=== PATIENT | female | born 1950 | race Caucasian/White ===

== ENCOUNTER 2016-12-28 10:42 | Outpatient (CLI) | payer OTHER, MEDICAID ==
[~2016-12-28 10:42] MED LIST: ALPR1TAB2 PO; KLO2 PO; NORCO5 PO; PARO40TA45 PO
== END 2016-12-28 18:28 | disposition home or self-care (01) ==
LOC: SMA 10:42
PROVIDERS: ATTEND Family Medicine
DX: Z12.31 Encounter for screening mammogram for malignant neoplasm of breast (principal)
CPT/HCPCS: 77067; G0202

== ENCOUNTER 2018-08-06 15:49 | Inpatient (IN) | payer OTHER, MEDICAID ==
[~2018-08-06] VITALS: Ht 167.6 cm; Wt 64.0 kg
[~2018-08-06 15:49] MED LIST changes: +PARO40TA PO; -PARO40TA45 PO
--- NOTE | 2018-08-06 15:56 | NUR ---
Placed in room 2. Placed on athletic monitor, blood pressure machine and pulse oximeter. To gown for exam. Side rails up. Report given to Jeremiah WALLIS.
[2018-08-06 15:57] VITALS: BP_SYST 160
--- NOTE | 2018-08-06 16:00 | NUR ---
Pt presents to ER c/o vomiting x 5 today along with general weakness and body aches 8/10 on pain scale. Pt denies chest pain or sob. Pt AOX4, ambulatory, speaking full sentences, respirations even and unlabored.
--- NOTE | 2018-08-06 16:04 | NUR ---
ER at bedside examining patient.
[2018-08-06] MEDS ORDERED: NACL 0.9% 1,000 ML IV ONE (16:07)
--- NOTE | 2018-08-06 16:12 | NUR ---
Radiology at bedside.
[2018-08-06] MEDS ORDERED: KETOROLAC TROMETHAMINE 30 MG VIAL IVP ONE (16:15)
[2018-08-06 16:52] LABS: BASOPHILS % (AUTO) 0.3 % (0.0-2.0); EOSINOPHILS % (AUTO) 0.1 % (0.0-4.0); HEMOGLOBIN 16.6 g/dL (12.0-16.0); LYMPHOCYTES # (AUTO) 1.2 K/uL (1.0-5.5); LYMPHOCYTES % (AUTO) 7.8 % (20.5-51.5); MEAN CORPUSCULAR HEMOGLOBIN 33 pg (27-31); MEAN CORPUSCULAR HGB CONC 34 % (32-36); MEAN CORPUSCULAR VOLUME 96 fL (79.0-98.0); MONOCYTES # (AUTO) 0.9 K/uL (0.0-1.0); NEUTROPHILS # (AUTO) 12.9 K/uL (1.8-7.7); NEUTROPHILS % (AUTO) 85.8 % (40.0-70.0); PLATELET COUNT (AUTO) 513 K/uL (130-430); RED CELL DISTRIBUTION WIDTH 13.1 % (9.0-15.0)
--- NOTE | 2018-08-06 16:55 | NUR ---
Pt vomited into emesis bag. Dr. Marcelino notified.
[2018-08-06 16:56] LABS: CALCIUM 9.5 mg/dL (8.4-11.0); CREATININE 0.78 mg/dL (0.55-1.30); POTASSIUM 3.6 mmol/L (3.5-5.1)
[2018-08-06] MEDS ORDERED: ONDANSETRON HCL 4 MG/2 ML VIAL IVP ONE (17:00)
[2018-08-06 17:02] LABS: TOTAL BILIRUBIN 0.5 mg/dL (0.0-1.0)
[2018-08-06 17:22] LABS: BILIRUBIN,URINE NEGATIVE (NEGATIVE); BLOOD, URINE 1+ (NEGATIVE); CLARITY/URINE SL HAZY (CLEAR); COLOR,URINE YELLOW (YELLOW); GLUCOSE,URINE NEGATIVE (NEGATIVE); KETONES,URINE NEGATIVE (NEGATIVE); LEUKOCYTE ESTERASE ,URINE NEGATIVE (NEGATIVE); NITRITE, URINE NEGATIVE (NEGATIVE); PH,URINE 7.5 (5.0-8.0); PROTEIN URINE NEGATIVE (NEGATIVE); UROBILINOGEN,URINE 0.2 (0.2-1.0)
--- NOTE | 2018-08-06 18:00 | NUR ---
Patient transported to radiology via wheelchair, accompanied by rad staff.
--- NOTE | 2018-08-06 18:27 | NUR ---
# 20 gauge angiocath placed to L HAND. Use of asceptic technique. Opsite placed over site. Blood return noted. Flushed with 10 cc of normal saline. No evidence of infiltration noted. Patient tolerated well.
[2018-08-06 18:46] LABS: WBC,URINE 0-3 /HPF (0-3)
[2018-08-06 18:47] LABS: BACTERIA,URINE FEW /HPF (None Seen); COARSE GRANULAR CASTS,URINE 0-10 /LPF (None Seen); MUCUS,URINE 1+ /LPF (None Seen); URINE AMORPHOUS URATE 1+ /HPF (None Seen)
[2018-08-06] MEDS ORDERED: CARI3CAP PO (19:26)
[2018-08-06] MEDS ORDERED: TOPI50TA PO (19:26)
[2018-08-06] MEDS ORDERED: QUET50TA PO (19:26)
[2018-08-06] MEDS ORDERED: PARO-63 PO (19:26)
--- NOTE | 2018-08-06 19:27 | NUR ---
Medication reconciliation completed with information provided by patient. Any prior medication reconciliation on file was reviewed and corrected.
--- NOTE | 2018-08-06 19:38 | NUR ---
ADMISSION NOTE Received patient from ER via gurney. Patient admitted with diagnosis of vomiting and body aches. Patient is awake, alert, oriented X 4. Patient oriented to hospital room, call light, toileting, pain management and safety-teach back done. Patient informed that Juan Antonio will be nurse and that their room number is 124A. Personal belongings checked and Belongings List documented. Call light within reach.
--- NOTE | 2018-08-06 19:40 | NUR ---
Patient will be admitted to care of Dr. Luna. Admitted to tele unit. Will go to room 124a. Belongings list completed. Summary report printed. Report will be given at bedside. Transfer to tele via ACLS protocol. Licensed nurse present. IV present no signs or symptoms of infiltration.
--- NOTE | 2018-08-06 19:50 | NUR ---
ULTRASOUND Patient taken by radiation tech at this time for ultrasound of pelvis and abdomen, escorted by manager intensive care unit. Patient is AOx4, complains of general pain,5/10, stating pain is everywhere. Breathing is even and unlabored, no SOB. No active bleeding noted.
[2018-08-06 20:40] VITALS: BP_SYST 151
[2018-08-06] MEDS ORDERED: KETOROLAC TROMETHAMINE 15 MG VIAL IVP PRN (21:00)
[2018-08-06] MEDS ORDERED: ACETAMINOPHEN 650 MG SUPP.RECT RC PRN (21:15)
[2018-08-06] MEDS ORDERED: KCL 20 mEq in 100 mL (PREMIX) 100 ML IV ONE (21:40)
[2018-08-06] MEDS: POTASSIUM CHLORIDE 10 MEQ in NACL 0.9% 1,000 ML IV SCH (21:45)
--- NOTE | 2018-08-06 21:50 | NUR ---
IV FLUID MIXED AND HUNG/PAIN IVF mixed by admit nurse, Roque, 10 meq KCl with NaCl running at 125 ml/hr per orders. Patient complained of 5/10 abdominal pain and general weakness. Toradol 15 mg IVP administered per PRN orders. Will continue to monitor and reassess patient.
[2018-08-06] MEDS: LORazepam 2 MG/ML VIAL IVP PRN (21:56)
[2018-08-06] MEDS: ONDANSETRON HCL 4 MG/2 ML VIAL IVP PRN (21:56)
[2018-08-06] MEDS ORDERED: PANTOPRAZOLE SODIUM 40 MG/VIAL (PROTONIX) IVP SCH (22:00)
--- NOTE | 2018-08-06 23:30 | NUR ---
ROUNDS Patient in bed sleeping at this time. No s/s of acute distress. Breathing is even and unlabored. IVF infusing well. Call light with patient. Bed alarm on. Will continue to monitor.
[2018-08-07] VITALS: BP_SYST 154
[2018-08-07 00:41] LABS: HCG,QUAL RESULT NEGATIVE (NEGATIVE)
--- NOTE | 2018-08-07 01:30 | NUR ---
ROUNDS/ASSISTED TO BATHROOM Patient requested assistance to the bathroom to void. Patient's gait steady, patient tolerated activity well. No s/s of acute distress noted. No SOB. Breathing even and unlabored. IVF infusing well, IV site shows no signs of infection or infiltration, patent. Call light with patient. Bed alarm on. Will continue to monitor.
--- NOTE | 2018-08-07 03:08 | NUR ---
CONSULTATION PAGED/CALLED Reason for Consultation: INCREASED LIPASE Person Who was Notified: OKSANA Consulting Physician: SENG International Operations Manager Specialty: GI Ordering Physician: LINSEY
--- NOTE | 2018-08-07 03:30 | NUR ---
ROUNDS Patient sleeping in bed. No signs of discomfort noted. Chest rise and fall even bilaterally. IVF infusing well. Call light with patient. Bed alarm on. Will continue to monitor.
[2018-08-07] MEDS: ONDANSETRON HCL 4 MG/2 ML VIAL IVP PRN (04:14)
[2018-08-07] MEDS: POTASSIUM CHLORIDE 10 MEQ in NACL 0.9% 1,000 ML IV SCH ×4 (05:14→21:04)
--- NOTE | 2018-08-07 05:30 | NUR ---
ROUNDS Patient sleeping at this time. NO acute distress noted. Breathing even and unlabored. Call light with patient. Will continue to monitor.
--- NOTE | 2018-08-07 07:22 | NUR ---
CLOSING NOTES Patient in bed resting at this time, watching TV. No s/s of acute distress noted. Patient denies any pain. Breathing is even and unlabored. IVF infusing well. IV site is patent, no signs of infiltration or infection. All of patient's needs met throughout shift. Fall and safety precautions maintained throughout shift. Will continue to monitor until patient care is endorsed to oncoming day shift nurse.
--- NOTE | 2018-08-07 07:30 | NUR ---
AM ROUNDS RECEIVED PT UP IN BED. AWAKE, ALERT, ORIENTED X4. BREATHING IS EVEN AND UNLABORED ON RA. FULL ASSESSMENT COMPLETED. VSS. PAIN TO ABDOMEN IS MANAGED AT THIS TIME. RD OF CALL LIGHT NOTED. ENCOURAGED PT TO CALL ME WITH ANY NEEDS.
[2018-08-07 07:56] LABS: BASOPHILS % (AUTO) 0.1 % (0.0-2.0); EOSINOPHILS % (AUTO) 0.1 % (0.0-4.0); LYMPHOCYTES # (AUTO) 1.4 K/uL (1.0-5.5); LYMPHOCYTES % (AUTO) 11.1 % (20.5-51.5); MEAN CORPUSCULAR HEMOGLOBIN 33 pg (27-31); MEAN CORPUSCULAR HGB CONC 34 % (32-36); MEAN CORPUSCULAR VOLUME 97 fL (79.0-98.0); MONOCYTES % (AUTO) 8.4 % (1.7-9.3); NEUTROPHILS # (AUTO) 10.1 K/uL (1.8-7.7); NEUTROPHILS % (AUTO) 80.3 % (40.0-70.0); PLATELET COUNT (AUTO) 412 K/uL (130-430); RED BLOOD CELL COUNT(AUTO) 4.84 MIL/uL (4.2-6.2); RED CELL DISTRIBUTION WIDTH 13.2 % (9.0-15.0); WHITE BLOOD COUNT (AUTO) 12.5 K/uL (4.8-10.8)
[2018-08-07 08:00] VITALS: BP_SYST 110
[2018-08-07 08:24] LABS: ALBUMIN 3.5 g/dL (3.4-4.8); CALCIUM 9.3 mg/dL (8.4-11.0); CREATININE 0.9 mg/dL (0.55-1.30); POTASSIUM 3.9 mmol/L (3.5-5.1); THYROID STIMULATING HORMONE 0.72 uIu/mL (0.34-4.82); TOTAL BILIRUBIN 0.5 mg/dL (0.0-1.0)
[2018-08-07 08:54] LABS: BILIRUBIN,DIRECT 0.1 mg/dL (0.0-0.3)
[2018-08-07] MEDS: PANTOPRAZOLE SODIUM 40 MG/VIAL (PROTONIX) IVP SCH (09:20)
--- NOTE | 2018-08-07 12:30 | NUR ---
RN ROUNDS ASSISTED PT TO BATHROOM. RETURNED TO BED. IVF RESUMED
[2018-08-07 12:45] VITALS: BP_SYST 130
[2018-08-07] MEDS: LORazepam 2 MG/ML VIAL IVP PRN (13:29)
--- NOTE | 2018-08-07 14:40 | NUR ---
RN ROUNDS PT RESTING IN BED. EYES CLOSED CHEST RISING AND FALLING. NO NONVERBAL INDICATORS OF PAIN NOTED.
[2018-08-07 16:18] VITALS: BP_SYST 99
--- NOTE | 2018-08-07 17:19 | NUR ---
IV RE-INSERTION: Complaining of pain to IV site. Restarted on LEFT WRIST. Successful after 1 attempts. Resumed current IVF and regulated @ 80 per hour. Will observe for any signs of infiltration.
--- NOTE | 2018-08-07 18:31 | NUR ---
CLOSING NOTE PT RESTING IN BED. ALL NEEDS MET. HOURLY ROUNDS OBSERVED THROUGHOUT SHIFT. WILL ENDORSE REPORT TO NOC SHIFT NURSE
--- NOTE | 2018-08-07 19:05 | NUR ---
OPENING NOTES Late entry due to patient care. Bedside report received from day shift nurse. Patient received lying in bed, AOx4, talking to her female friend present at bedside. Patient denies any pain, dizziness, or nausea at this time. No s/s of acute distress noted. Breathing is even and unlabored. Patient was made aware of EGD procedure for tomorrow and that she will be NPO at midnight, patient verbalized understanding. IVF infusing well. IV site shows no signs of infection or infiltration. Call light with patient, instructed to call for any assistance, patient verbalized understanding. Bed alarm on. Bed is locked and at lowest position. Will continue to monitor.
[2018-08-07 20:00] VITALS: BP_SYST 137
[2018-08-07] MEDS ORDERED: QUEtiapine FUMARATE 25 MG TABLET PO SCH (21:00)
[2018-08-07] MEDS ORDERED: CARIPRAZINE HYDROCHLORIDE 3 MG PO SCH (21:00)
--- NOTE | 2018-08-07 21:00 | NUR ---
NEW IV BAG HUNG/MEDPASS New IV bag hung at this time. IVF infusing well, IV site patent, no signs of infection or infiltration. Scheduled medication administered at this time. Patient shows no signs of discomfort. Patient denies any pain or nausea. Call light with patient. Bed alarm on. Will continue to monitor.
--- NOTE | 2018-08-07 23:00 | NUR ---
ROUNDS Patient in bed sleeping at this time. No signs of discomfort noted. Chest rise and fall even bilaterally. IVF infusing well. Call light with patient. Bed alarm on. Will continue to monitor.
--- NOTE | 2018-08-08 00:15 | NUR ---
ASSIST TO BATHROOM Patient requested for assistance to the bathroom to void. Patient tolerated activity well. No s/s of acute distress. No SOB. Patient walked back to bed. Call light within reach. IVF infusing well. Bed alarm on. Will continue to monitor.
[2018-08-08 01:07] VITALS: BP_SYST 126
--- NOTE | 2018-08-08 02:00 | NUR ---
ROUNDS Patient sleeping in bed comfortably. No signs of discomfort noted. Chest rise and fall even bilaterally. IVF infusing well. Call light within reach. Bed alarm remains on. Will continue to monitor.
--- NOTE | 2018-08-08 04:00 | NUR ---
ROUNDS Patient sleeping comfortably at this time. No s/s of acute distress noted. Chest rise and fall even bilaterally. IVF infusing well. Call light with patient. Bed alarm on. Will continue to monitor.
--- NOTE | 2018-08-08 06:27 | NUR ---
CLOSING NOTES Patient in bed resting, watching TV. No s/s of acute distress, patient denies pain or nausea. Breathing even and unlabored. IVF infusing well, IV site shows no signs of infection or infiltration. HOB raised. NPO cone present at bedside table. Patient is aware of NPO status and has verbalized understanding. EGD scheduled for this morning. All of patient's needs met throughout shift. Fall and safety precautions maintained throughout shift. Will continue to monitor until patient care is endorsed to oncoming day shift nurse.
[2018-08-08 06:52] LABS: CALCIUM 8.9 mg/dL (8.4-11.0); CREATININE 0.96 mg/dL (0.55-1.30); POTASSIUM 3.3 mmol/L (3.5-5.1)
[2018-08-08 07:07] LABS: ALBUMIN 3.3 g/dL (3.4-4.8); TOTAL BILIRUBIN 0.6 mg/dL (0.0-1.0)
[2018-08-08] MEDS ORDERED: SIMETHICONE 40 MG/0.6 ML ML ONE ×2 (07:47→10:10)
[2018-08-08] MEDS ORDERED: POTASSIUM CHLORIDE 30 MEQ in NS 250 ML IV ONE (08:00)
[2018-08-08 08:25] VITALS: BP_SYST 130
--- NOTE | 2018-08-08 08:35 | NUR ---
opening notes, received pt in bed, pt is aao x4, denies pain. no sob, no distress. pt is afebrile. left wrist iv access intact and patent. saline locked. no s/s of infiltration. gi senior label specialist at bedside to take pt for egd. safety precaution kept in place. call light in reach. bed in low position. pt is ambulatory but encouraged to call for assist to bathroom and call for any concerns or pain. will cont to monitor.
--- NOTE | 2018-08-08 08:39 | NUR ---
pt taken to gi lab for egd by gi lab nurse.
[2018-08-08] MEDS ORDERED: PARoxetine HCL 20 MG TABLET PO SCH (09:00)
[2018-08-08] MEDS ORDERED: TOPIRAMATE 25 MG TABLET(TOPAMAX) PO SCH (09:00)
[2018-08-08] MEDS: MIDAZOLAM HCL 5 MG/5 ML VIAL ONE ×3 (10:08→10:12)
[2018-08-08] MEDS: MEPERIDINE HCL/PF 100 MG/ML AMP ONE ×2 (10:08→10:10)
--- NOTE | 2018-08-08 10:24 | NUR ---
pt still in gi lab.
--- NOTE | 2018-08-08 10:37 | NUR ---
received report from tabby, gi lab. egd dx is gastritis, pt given versed 3 and demerol 50. pt still in gi lab.
--- NOTE | 2018-08-08 11:20 | NUR ---
pt back from gi lab. given am meds. pt has no c/o pain.
[2018-08-08] MEDS: POTASSIUM CHLORIDE 10 MEQ in NACL 0.9% 1,000 ML IV SCH (11:27)
[2018-08-08] MEDS: PANTOPRAZOLE SODIUM 40 MG/VIAL (PROTONIX) IVP SCH (11:28)
[2018-08-08 12:00] VITALS: BP_SYST 135
[2018-08-08] MEDS ORDERED: PRO40 PO (12:27)
--- NOTE | 2018-08-08 13:15 | NUR ---
pt in bed, eating lunch. family at bedside. safety precaution in place. call light in reach.
--- NOTE | 2018-08-08 13:59 | NUR ---
ATTENDING MD DR STILES WAS PAGED RE: TO CONTINUE HOME MEDS UPON DISCHARGE OR NOT. SPOKE TO MAGGIE
--- NOTE | 2018-08-08 14:01 | NUR ---
patient in bed, no c/o pain, family at bedside. krider infusing well. no no s./s of infiltration on iv site, pt has no c/o pain. call light in reach.
[2018-08-08 14:32] VITALS: BP_SYST 143
[2018-08-08 14:34] VITALS: BP_SYST 143
--- NOTE | 2018-08-08 15:00 | NUR ---
pt ambulates to the bathroom , pt has very steady gait, no c/o pain. pt tolerated regular soft diet. no c/o n/v or abdominal after eating.
--- NOTE | 2018-08-08 15:30 | NUR ---
D/C Patient Patient given medication reconciliation form and D/C instructions. Exit Care provided. Patient verbalized understanding. MD discussed with patient the results and treatment provided. Ambulatory with steady gait for discharge to home. Patient in stable condition, ID band removed. IV catheter removed, intact and dressing applied, no active bleeding. Rx of PROTONIX given. Patient educated on pain management and the effects and side effects of protonix, pt verbalized understandig. Pt also given dc instruction on soft diet. All belongings sent with patient.
--- NOTE | 2018-08-08 15:43 | NUR ---
Dietitian Recommendations * Recommend continuing regular diet per LP, RD Please refer to Nutrition Assessment for details.
== END 2018-08-08 15:30 | disposition home or self-care (01) | DRG 392 ==
LOC: SED 15:49 → STU 19:08
PROVIDERS: ADMIT Internal Medicine; ATTEND Internal Medicine
PROC: 0DB68ZX Excision of Stomach, Via Natural or Artificial Opening Endoscopic, Diagnostic (ICD-10-PCS; 2018-08-08)
PROC: 0DB98ZX Excision of Duodenum, Via Natural or Artificial Opening Endoscopic, Diagnostic (ICD-10-PCS; principal; 2018-08-08 09:30)
DX: K29.70 Gastritis, unspecified, without bleeding (principal); E87.1 Hypo-osmolality and hyponatremia; K27.9 Peptic ulcer, site unspecified, unspecified as acute or chronic, without hemorrhage or perforation; K90.0 Celiac disease; E87.6 Hypokalemia; F17.210 Nicotine dependence, cigarettes, uncomplicated; F32.9 Major depressive disorder, single episode, unspecified; Z80.3 Family history of malignant neoplasm of breast; Z88.5 Allergy status to narcotic agent; Z88.2 Allergy status to sulfonamides
CPT/HCPCS: 36415; 43239; 74021; 76700-TC; 76830-TC; 76857; 80048; 80053; 80076; 81000-TC; 82150-TC; 83690-TC; 83735-TC; 84443-TC; 84703; 85025; 87040-TC; 87081; 88305; 88312; 88313; 93005; 96374; 96375; 99285; C9113; J1885; J2060; J2175; J2250; J2405; J3480; J7030; J7050

== ENCOUNTER 2018-11-01 09:57 | Emergency (ER) | payer OTHER, MEDICAID ==
[~2018-11-01] VITALS: Ht 167.6 cm; Wt 64.0 kg
[~2018-11-01 09:57] MED LIST changes: -ALPR1TAB2 PO; +CARI3CAP PO; -KLO2 PO; -NORCO5 PO; +PARO-63 PO; -PARO40TA PO; +PRO40 PO; +QUET50TA PO; +TOPI50TA PO
[2018-11-01 10:14] VITALS: BP_SYST 172
[2018-11-01 10:59] LABS: BASOPHILS % (AUTO) 0.3 % (0.0-2.0); EOSINOPHILS % (AUTO) 0.2 % (0.0-4.0); HEMATOCRIT 44.1 % (36-48); HEMOGLOBIN 14.8 g/dL (12.0-16.0); LYMPHOCYTES % (AUTO) 8.6 % (20.5-51.5); MEAN CORPUSCULAR HEMOGLOBIN 32 pg (27-31); MEAN CORPUSCULAR HGB CONC 34 % (32-36); MEAN CORPUSCULAR VOLUME 95 fL (79.0-98.0); MONOCYTES # (AUTO) 0.3 K/uL (0.0-1.0); MONOCYTES % (AUTO) 2.5 % (1.7-9.3); NEUTROPHILS # (AUTO) 9.8 K/uL (1.8-7.7); NEUTROPHILS % (AUTO) 88.4 % (40.0-70.0); PLATELET COUNT (AUTO) 441 K/uL (130-430); RED BLOOD CELL COUNT(AUTO) 4.64 MIL/uL (4.2-6.2); RED CELL DISTRIBUTION WIDTH 13.3 % (9.0-15.0); WHITE BLOOD COUNT (AUTO) 11.1 K/uL (4.8-10.8)
[2018-11-01 11:02] LABS: CALCIUM 9.4 mg/dL (8.4-11.0); CREATININE 0.65 mg/dL (0.55-1.30); POTASSIUM 3.8 mmol/L (3.5-5.1)
[2018-11-01 11:06] LABS: ALBUMIN 3.8 g/dL (3.4-4.8); TOTAL BILIRUBIN 0.4 mg/dL (0.0-1.0)
--- NOTE | 2018-11-01 12:16 | NUR ---
Patient to ER bed 3 to gown for evaluation. Side rails up. Report given to Reyes WALLIS.
[2018-11-01] MEDS ORDERED: ONDANSETRON HCL 4 MG/2 ML VIAL IVP ONE ×2 (12:30→14:30)
[2018-11-01] MEDS ORDERED: NACL 0.9% 1,000 ML IV ONE (12:45)
--- NOTE | 2018-11-01 12:45 | NUR ---
PATIENT SITTING UP ON BED. AAOX4. RESPIRATIONS EVEN AND UNLABORED. DENIES OF ANY CHEST PAIN OR SOB. NO NUMBNESS OR TINGLING. PT WITH C/O NAUSEA, VOMITING, AND WEAKNESS SINCE THIS AM. PER PT, "I HAVE HAD CHRONIC LOW POTASSIUM." NO S/SX OF PAIN OBSERVED. PT IN NO ACUTE DISTRESS. REST AND RELAXATION ENOCURAGED. WILL CONTINUE TO MONITOR.
--- NOTE | 2018-11-01 12:50 | NUR ---
ZOFRAN ADMINISTERED FOR NAUSEA. IV FLUIDS OF NS STARTED. TOLERATED WELL. WILL CONTINUE TO MONITOR. PT'S FAMILY AT BEDSIDE FOR SUPPORT.
[2018-11-01 13:46] LABS: BILIRUBIN,URINE NEGATIVE (NEGATIVE); CLARITY/URINE CLEAR (CLEAR); COLOR,URINE YELLOW (YELLOW); GLUCOSE,URINE NEGATIVE (NEGATIVE); KETONES,URINE 1+ (NEGATIVE); LEUKOCYTE ESTERASE ,URINE NEGATIVE (NEGATIVE); NITRITE, URINE NEGATIVE (NEGATIVE); PH,URINE 7.5 (5.0-8.0); PROTEIN URINE NEGATIVE (NEGATIVE); UROBILINOGEN,URINE 0.2 (0.2-1.0)
[2018-11-01 13:51] LABS: BLOOD, URINE TRACE (NEGATIVE)
[2018-11-01 13:55] LABS: BACTERIA,URINE FEW /HPF (None Seen); MUCUS,URINE None Seen /LPF (None Seen); RBC,URINE 0-3 /HPF (0-3); WBC,URINE 0-3 /HPF (0-3)
--- NOTE | 2018-11-01 13:55 | NUR ---
PT STILL WITH C/O NAUSEA. NO VOMITING. 2ND DOSE OF ZOFRAN GIVEN PER DR. LONDON ORDERS. WILL CONTINUE TO MONITOR.
[2018-11-01 13:58] LABS: BARBITURATE, URINE NEGATIVE (NEG <=200); BENZODIAZEPINE, URINE POSITIVE (NEG <=150); CANNABINOID, URINE POSITIVE (NEG <=50); COCAINE, URINE NEGATIVE (NEG <=150); METHAMPHETAMINES SCREEN,URINE NEGATIVE (NEG <=500); OPIATE, URINE NEGATIVE (NEG <=100); PHENCYCLIDINE SCREEN,URINE NEGATIVE (NEG <=25); UR TRICYCLIC ANTIDEPRESSANTS NEGATIVE (NEG <=300); URINE AMPHETAMINE NEGATIVE (NEG <=500); URINE METHADONE NEGATIVE (NEG <=200); URINE OXYCODONE SCREEN NEGATIVE (NEG <=100); URINE PROPOXYPHENE SCREEN NEGATIVE (NEG <=300)
--- NOTE | 2018-11-01 14:15 | NUR ---
PATIENT VERBALIZED RELIEF FROM NAUSEA. NO EPISODES OF VOMITING. Patient resting quietly. No acute distress noted.
[2018-11-01 14:30] VITALS: BP_SYST 137
--- NOTE | 2018-11-01 14:30 | NUR ---
Patient given written and verbal discharge instructions and verbalizes understanding. ER MD discussed with patient the results and treatment provided. Patient in stable condition. ID arm band removed. IV catheter removed intact and dressing applied, no active bleeding. Rx of ZOFRAN given. Patient educated on pain management and to follow up with PMD. Pain Scale 0/10. Opportunity for questions provided and answered. Medication side effect fact sheet provided. PATIENT IN GOOD CONDITION AND IN NO ACUTE DISTRESS. PT VERBALIZED RELIEF FROM NAUSEA. NO EPISODES OF VOMITING. PT NOTED WITH STABLE GAIT.
== END 2018-11-01 14:30 | disposition home or self-care (01) ==
LOC: SED 09:57
DX: F12.10 Cannabis abuse, uncomplicated (principal); R11.10 Vomiting, unspecified; R03.0 Elevated blood-pressure reading, without diagnosis of hypertension; F32.9 Major depressive disorder, single episode, unspecified; Z79.899 Other long term (current) drug therapy
CPT/HCPCS: 36415; 74021; 80053; 80307; 81000; 82962; 83690; 85025; 93005; 96361; 96374; 96376; 99284; J2405; J7030

== ENCOUNTER 2018-11-03 12:33 | Inpatient (IN) | payer OTHER, MEDICAID ==
[~2018-11-03] VITALS: Ht 167.6 cm; Wt 67.6 kg
--- NOTE | 2018-11-03 12:35 | NUR ---
Arrived via [facility] ambulance with compliant of sever SOB at home. Patient was found to have expiratory wheezes and O2 sat 84% on arrival of EMS and was given a breathing Tx. Placed in room 2. Placed on cafeteria monitor, blood pressure machine and pulse oximeter. To gown for exam. Side rails up. Report given to Donato WALLIS.
[2018-11-03] MEDS ORDERED: NACL 0.9% 1,000 ML IV ONE (12:43)
[2018-11-03] MEDS ORDERED: ALBUTEROL SULFATE 0.083% 2.5 MG/3 ML VIAL.NEB IH ONE ×2 (12:45→15:30)
[2018-11-03] MEDS ORDERED: methylPREDNISolone SOD SUCC/PF 62.5 MG/ML VIAL IVP ONE ×2 (12:45→16:30)
[2018-11-03] MEDS ORDERED: IPRATROPIUM BROM 0.5 MG/2.5 ML VIAL.NEB (ATROVENT) IH ONE ×2 (12:45→15:30)
--- NOTE | 2018-11-03 12:45 | NUR ---
Dr. Henderson at bedside assessing the patient.
--- NOTE | 2018-11-03 12:45 | NUR ---
Pt with SOB at rest and exertion x 2 days. worse today. RUL Lung is tight, wheezing on inspiration and expiration and bronchospasms. MD ordered labs, cultures, solumedrol and IVF's of 1 liter NS wide open. Otherwise pt is A/O x 3 and generally weak with stable vitals except low 02 wally. Pt on 4 liters NC to keep wally above 90%. Continue to monitor.
[2018-11-03 13:15] LABS: BASOPHILS # (AUTO) 0.2 K/uL (0.0-0.2); BASOPHILS % (AUTO) 1.3 % (0.0-2.0); HEMATOCRIT 42.7 % (36-48); LYMPHOCYTES # (AUTO) 0.9 K/uL (1.0-5.5); MEAN CORPUSCULAR HEMOGLOBIN 33 pg (27-31); MEAN CORPUSCULAR HGB CONC 35 % (32-36); MEAN CORPUSCULAR VOLUME 94 fL (79.0-98.0); MONOCYTES % (AUTO) 7.1 % (1.7-9.3); NEUTROPHILS # (AUTO) 12.4 K/uL (1.8-7.7); NEUTROPHILS % (AUTO) 85.6 % (40.0-70.0); PLATELET COUNT (AUTO) 457 K/uL (130-430); RED BLOOD CELL COUNT(AUTO) 4.52 MIL/uL (4.2-6.2); RED CELL DISTRIBUTION WIDTH 12.6 % (9.0-15.0)
[2018-11-03 13:18] LABS: WHITE BLOOD COUNT (AUTO) 14.5 K/uL (4.8-10.8)
[2018-11-03 13:19] LABS: CALCIUM 9.5 mg/dL (8.4-11.0); CREATININE 0.66 mg/dL (0.55-1.30)
[2018-11-03 13:24] LABS: PROTHROMBIN TIME 10.2 SECS (9.5-12.5)
[2018-11-03 13:25] LABS: ALBUMIN 3.7 g/dL (3.4-4.8); TOTAL BILIRUBIN 0.8 mg/dL (0.0-1.0)
[2018-11-03 13:27] LABS: POTASSIUM 2.8 mmol/L (3.5-5.1)
[2018-11-03] MEDS ORDERED: ASPIRIN 81 MG TAB.CHEW PO ONE (13:45)
[2018-11-03] MEDS ORDERED: CLOPIDOGREL BISULFATE 75 MG TABLET PO ONE (13:45)
[2018-11-03] MEDS ORDERED: cefTRIAXone 1 GM IVPB PREMIX 50 ML IV ONE (13:45)
[2018-11-03 13:56] LABS: CKMB RELATIVE INDEX 3.9 (0.0-2.9); CREATINE KINASE MB 8.1 ng/mL (0-3.6)
[2018-11-03] MEDS ORDERED: POTASSIUM CHLORIDE 10 MEQ TAB.PRT.SR PO ONE (14:15)
[2018-11-03] MEDS ORDERED: KCL 40 mEq in 100 mL (PREMIX) 100 ML IV ONE (14:15)
--- NOTE | 2018-11-03 14:58 | NUR ---
Pt ready for transfer. Pt being admitted for PNA and resp failure, COPD. Pt given 30 mg of P.O. potassium and requires 40 meq potassium K-Bert which needs to be mixed by pharmacy. Report SBAR given to floor nurse and all questions answered
[2018-11-03] MEDS: IPRATROPIUM/ALBUTEROL SULFATE 3 ML AMPUL.NEB (DUONEB) INH SCH ×3 (15:00→23:57)
--- NOTE | 2018-11-03 15:26 | NUR ---
ADMISSION NOTE Received patient from ER via tyson, received report from ALLEY WALLIS. Patient admitted with diagnosis of PNEUMONIA. Patient oriented to hospital routine, call light, toileting and safety-patient verbalized understanding.
[2018-11-03 15:33] VITALS: BP_SYST 91
[2018-11-03 15:41] VITALS: BP_SYST 91
--- NOTE | 2018-11-03 15:55 | NUR ---
CONSULTATION PAGED REASON FOR CONSULTATION:PNEUMONIA WAS CONSULT CALLED?Y PERSON WHO WAS NOTIFIED:HALIE CONSULTING PHYSICIAN:JOVAN TATE MOLD CAPPER SPECIALTY:PULMONARY MOLD CAPPER PHONE NUMBER:[phone] ORDERING PHYSICIAN:ASHKAN KAHN
[2018-11-03 16:00] VITALS: BP_SYST 127
[2018-11-03] MEDS ORDERED: POTASSIUM CHLORIDE 20 MEQ TAB.PRT.SR PO ONE (16:00)
--- NOTE | 2018-11-03 16:00 | NUR ---
NOTES PATIENT RECEIVED RESTING IN BED WITH EYES OPEN, PATIENT IS AWAKE, ALERT, AND ORIENTED X 4, PATIENT BREATHING IS EVEN AND UNLABORED ON 4L NASAL CANNULA, PATIENT DENIES ANY ACUTE DISTRESS OR PAIN, ASSESSMENT COMPLETED, EDUCATED PATIENT ON PLAN OF CARE AND CALL LIGHT SYSTEM, FAMILY IS AT BEDSIDE, WILL CONTINUE TO MONITOR, SAFETY PRECAUTIONS IN PLACE, CALL LIGHT WITHIN REACH.
--- NOTE | 2018-11-03 16:06 | NUR ---
CONSULTATION PAGED REASON FOR CONSULTATION:PNEUMONIA WAS CONSULT CALLED?Y PERSON WHO WAS NOTIFIED:ALICIA CONSULTING PHYSICIAN:MAGALI GATES MOTION PICTURE CAMERA LENS TECHNICIAN SPECIALTY:CARDIO MOTION PICTURE CAMERA LENS TECHNICIAN PHONE NUMBER:[phone] ORDERING PHYSICIAN:[facility]
[2018-11-03] MEDS ORDERED: ONDANSETRON HCL 4 MG/2 ML VIAL IVP PRN (16:15)
[2018-11-03] MEDS: POTASSIUM CHLORIDE 30 MEQ in NACL 0.9% 1,000 ML IV SCH (16:25)
[2018-11-03] MEDS ORDERED: *LOVENOX 1MG/KG Q12H/PHARMACY XX PRN (16:30)
[2018-11-03] MEDS ORDERED: AZITHROMYCIN 500 MG in NS 250 ML IV SCH (17:00)
[2018-11-03] MEDS: LEVOFLOXACIN 500 MG TABLET PO SCH (18:28)
[2018-11-03] MEDS: LORazepam 1 MG TABLET PO PRN (18:47)
--- NOTE | 2018-11-03 18:51 | NUR ---
CLOSING NOTE PATIENT IS RESTING IN BED, PATIENT REMAINING SHORT OF BREATH UPON EXERTION, PATIENT ON 4L NASAL CANNULA, MEDICATED FOR AGITATION AND ANXIETY, PATIENT DENIES ANY PAIN, IVF INFUSING WELL WITH NO SIGNS OF INFILTRATION, ALL NEEDS WERE MET THROUGHOUT SHIFT, WILL ENDORSE REPORT TO ONCOMING NURSE, SAFETY PRECAUTIONS IN PLACE, CALL LIGHT WITHIN REACH.
--- NOTE | 2018-11-03 19:15 | NUR ---
OPENING NOTES Late entry due to patient care. Bedside report received from dayshift nurse. Patient received lying in bed, HOB raised, nasal canula attached properly, on 4L of oxygen. No s/s of acute distress noted, breathing even and unlabored. Patient denies pain at this time but states that she feels weak. IVF infusing well, IV site shows no signs of infection or infiltration. No active bleeding noted. SCDs are off per patient's refusal to have them on despite being educated on its purpose and benefits, will continue to encourage throughout shift. Call light with patient, instructed to call for any assistance, patient verbalized understanding. Bed alarm is on. Bed is locked and at lowest position. Will continue to monitor.
[2018-11-03 20:00] VITALS: BP_SYST 123
[2018-11-03] MEDS ORDERED: ENOXAPARIN SODIUM 60 MG/0.6 ML SYRINGE SUBCUT SCH (21:00)
[2018-11-03] MEDS: methylPREDNISolone SOD SUCC/PF 62.5 MG/ML VIAL IVP SCH (21:07)
[2018-11-03] MEDS: POTASSIUM CHLORIDE 20 MEQ TAB.PRT.SR PO SCH (21:07)
[2018-11-03] MEDS: VRAYLAR 3 MG PO SCH (21:07)
[2018-11-03] MEDS: QUEtiapine FUMARATE 25 MG TABLET PO SCH (21:08)
[2018-11-03] MEDS: ENOXAPARIN SODIUM 60 MG/0.6 ML SYRINGE SUBCUT SCH (21:09)
--- NOTE | 2018-11-03 21:16 | NUR ---
CRITICAL LAB Received critical lab value Troponin 0.760. Patient in bed, no s/s of acute distress. Breathing even and unlabored. Patient denies any pain at this time. Will inform .
--- NOTE | 2018-11-03 21:20 | NUR ---
PAGED PAGED MAGALI GATES AT [phone] SPOKE WITH EMY.
--- NOTE | 2018-11-03 22:02 | NUR ---
SERVANDO HENDRICKS x2 SECOND PAGE CALLED TO DR. WYNN @ [phone] IN REGARDS TO CRITICAL LAB RESULTS.
--- NOTE | 2018-11-03 23:00 | NUR ---
ANXIETY/EDUCATION: DEEP BREATHS Patient informed RN that she is feeling anxious at this time. Patient informed that Ativan is not available at this time per PRN order. RN educated patient on deep breathing, inhale through the nose and exhale through the mouth. Education was effective, patient states that she feels better. Call light with patient. Bed alarm on. Will continue to monitor and reassess.
--- NOTE | 2018-11-04 01:00 | NUR ---
ROUNDS Patient in bed sleeping at this time. No signs of discomfort noted. Chest rise and fall even bilaterally. Nasal canula attached properly. IVF infusing well. Call light with patient. Bed alarm on. Will continue to monitor.
[2018-11-04 01:50] VITALS: BP_SYST 119
[2018-11-04] MEDS: POTASSIUM CHLORIDE 30 MEQ in NACL 0.9% 1,000 ML IV SCH ×2 (02:18→12:47)
--- NOTE | 2018-11-04 03:00 | NUR ---
ROUNDS Patient in bed receiving breathing treatment. RT present at bedside. HOB raised, no s/s of acute distress noted. Breathing even and unlabored. Call light with patient. Bed alarm on. Will continue to monitor.
[2018-11-04] MEDS: IPRATROPIUM/ALBUTEROL SULFATE 3 ML AMPUL.NEB (DUONEB) INH SCH ×6 (03:17→23:07)
[2018-11-04] MEDS: LORazepam 1 MG TABLET PO PRN ×3 (03:25→20:19)
--- NOTE | 2018-11-04 05:00 | NUR ---
ROUNDS Patient in bed sleeping at this time. No signs of discomfort noted. Chest rise and fall even bilaterally. HOB raised, nasal canula attached properly. IVF infusing well. Call light with patient. Bed alarm on. Will continue to monitor.
[2018-11-04] MEDS: methylPREDNISolone SOD SUCC/PF 62.5 MG/ML VIAL IVP SCH ×3 (05:52→22:10)
--- NOTE | 2018-11-04 06:39 | NUR ---
CLOSING NOTE Patient in bed, eyes closed, appears to be sleeping. No s/s of acute distress noted. Breathing is even and unlabored. IVF infusing well, IV site shows no signs of infiltration or infection. Nasal canula attached properly, on 4L of oxygen. SCDs attached and operating. No active bleeding noted. All of patient's needs met throughout shift. Fall and safety precautions maintained throughout shift. Will continue to monitor until patient care is endorsed to oncoming day shift nurse.
[2018-11-04 07:44] LABS: CALCIUM 8.8 mg/dL (8.4-11.0); CREATININE 0.63 mg/dL (0.55-1.30); POTASSIUM 4.4 mmol/L (3.5-5.1)
[2018-11-04 07:57] LABS: BASOPHILS % (AUTO) 0.1 % (0.0-2.0); EOSINOPHILS % (AUTO) 0.1 % (0.0-4.0); HEMATOCRIT 37.1 % (36-48); HEMOGLOBIN 12.4 g/dL (12.0-16.0); LYMPHOCYTES # (AUTO) 0.6 K/uL (1.0-5.5); LYMPHOCYTES % (AUTO) 6.6 % (20.5-51.5); MEAN CORPUSCULAR HEMOGLOBIN 32 pg (27-31); MEAN CORPUSCULAR HGB CONC 33 % (32-36); MEAN CORPUSCULAR VOLUME 97 fL (79.0-98.0); MONOCYTES # (AUTO) 0.5 K/uL (0.0-1.0); MONOCYTES % (AUTO) 5.2 % (1.7-9.3); NEUTROPHILS # (AUTO) 7.6 K/uL (1.8-7.7); PLATELET COUNT (AUTO) 346 K/uL (130-430); RED BLOOD CELL COUNT(AUTO) 3.84 MIL/uL (4.2-6.2); RED CELL DISTRIBUTION WIDTH 12.8 % (9.0-15.0); TOTAL BILIRUBIN 0.5 mg/dL (0.0-1.0); WHITE BLOOD COUNT (AUTO) 8.7 K/uL (4.8-10.8)
[2018-11-04 08:00] VITALS: BP_SYST 117
--- NOTE | 2018-11-04 08:00 | NUR ---
Opening Note received report from night baker RN, pt resting in bed, A&Ox4, respirations even and unlabored on 4L nasal cannula, pt denies any pain, no acute distress noted, IV site clean, dry, and intact, SCDs in place, pt educated on use of call light and asked to call for assistance, pt verbalized understanding, call light in reach, bed in low and locked position, bed alarm on, room close to nurses station, fall and aspiration precautions in place.
--- NOTE | 2018-11-04 08:09 | NUR ---
PAGED PAGED MAGALI GATES AT [phone] SPOKE WITH JUAN CARLOS.
[2018-11-04] MEDS: TOPIRAMATE 25 MG TABLET(TOPAMAX) PO SCH (08:13)
[2018-11-04] MEDS: PANTOPRAZOLE SODIUM 40 MG TAB PO SCH (08:13)
[2018-11-04] MEDS: cefTRIAXone 1 GM in D5W 50 ML IV SCH (08:13)
[2018-11-04] MEDS: POTASSIUM CHLORIDE 20 MEQ TAB.PRT.SR PO SCH ×2 (08:13→20:20)
[2018-11-04] MEDS: PARoxetine HCL 20 MG TABLET PO SCH (08:13)
[2018-11-04] MEDS: ASPIRIN 81 MG TAB.CHEW PO SCH (08:14)
[2018-11-04] MEDS: ENOXAPARIN SODIUM 60 MG/0.6 ML SYRINGE SUBCUT SCH ×2 (08:15→20:28)
--- NOTE | 2018-11-04 08:18 | NUR ---
Medication pt educated on medication use and side effects, pt verbalized understanding, tolerated medication administration well, no acute distress noted, fall and aspiration precautions in place.
--- NOTE | 2018-11-04 08:28 | NUR ---
Spoke with spoke with Dr. Pineda, informed him of critical lab troponin 0.498, no new orders.
--- NOTE | 2018-11-04 09:42 | NUR ---
MD Rounds/Spoke with pts son Dr. Pineda at bedside speaking with pt and pts son Gil, pts son Gil updated on plan of care, pt resting in bed, no acute distress noted, fall and aspiration precautions in place.
[2018-11-04] MEDS ORDERED: LOSARTAN POTASSIUM 25 MG TABLET PO ONE (09:45)
[2018-11-04] MEDS ORDERED: FUROSEMIDE 40 MG TABLET PO ONE (09:45)
[2018-11-04] MEDS ORDERED: CARVEDILOL 6.25 MG TABLET (COREG) PO ONE (09:45)
--- NOTE | 2018-11-04 10:21 | NUR ---
Medication pt and pts son Gil educated on medication use and side effects, pt and pts son Gil verbalized understanding, pt tolerated medication administration well, no acute distress noted, pt educated on use of call light and asked to call for assistance, pt verbalized understanding, call light in reach, bed in low and locked position, bed alarm on, fall and aspiration precautions in place.
[2018-11-04 11:24] LABS: BILIRUBIN,URINE NEGATIVE (NEGATIVE); CLARITY/URINE CLEAR (CLEAR); COLOR,URINE YELLOW (YELLOW); GLUCOSE,URINE NEGATIVE (NEGATIVE); KETONES,URINE NEGATIVE (NEGATIVE); LEUKOCYTE ESTERASE ,URINE NEGATIVE (NEGATIVE); NITRITE, URINE NEGATIVE (NEGATIVE); PROTEIN URINE NEGATIVE (NEGATIVE); UROBILINOGEN,URINE 0.2 (0.2-1.0)
[2018-11-04 11:30] LABS: BLOOD, URINE TRACE (NEGATIVE)
--- NOTE | 2018-11-04 11:36 | NUR ---
Anxiety/Medication pt complaint of anxiety, pt educated on use and side effects of PRN ativan for anxiety, pt verbalized understanding, tolerated medication administration well, no acute distress noted, pts son Gil at bedside, fall and aspiration precautions in place.
[2018-11-04 11:47] LABS: BACTERIA,URINE RARE /HPF (None Seen); WBC,URINE 0-3 /HPF (0-3)
[2018-11-04 12:09] VITALS: BP_SYST 116
--- NOTE | 2018-11-04 13:20 | NUR ---
Medication pt educated on medication use and side effects, pt verbalized understanding, tolerated medication administration well, no acute distress noted, family at bedside, fall and aspiration precautions in place.
--- NOTE | 2018-11-04 14:00 | NUR ---
MD Rounds Dr. Brand at bedside examining pt, pt requesting nicotine patch, per MD nicotine patch is contraindicated at this time, MD aware of echo results EF 20-25%, and that UA showed RBCs, no new orders.
--- NOTE | 2018-11-04 14:21 | NUR ---
IV placement IV catheter found at bedside, catheter intact, no bleeding, pt educated on purpose and procedure for IV catheter placement, pt verbalized understanding, new IV catheter 22G placed to left hand, pt tolerated well, no acute distress noted, IV flushes easily with blood return, pts family at the bedside, fall and aspiration precautions in place.
[2018-11-04 16:03] VITALS: BP_SYST 126
--- NOTE | 2018-11-04 16:55 | NUR ---
RN Rounds pt resting in bed, tolerating O2 therapy well on 4L nasal cannula, respirations even and unlabored, pt denies any pain, no acute distress noted, family at bedside, fall and aspiration precautions in place.
[2018-11-04] MEDS: LEVOFLOXACIN 500 MG TABLET PO SCH (18:02)
--- NOTE | 2018-11-04 18:03 | NUR ---
Medication pt educated on medication use and side effects, pt verbalized understanding, tolerated medication administration well, no acute distress noted, pts son Gil at bedside, fall and aspiration precautions in place.
--- NOTE | 2018-11-04 19:20 | NUR ---
Closing Note pt resting in bed, A&Ox4, respirations even and unlabored on 4L nasal cannula, pt denies any SOB or pain, no acute distress noted, IV site clean, dry, intact and infusing well, pts son Gil at bedside, pt educated on use of call light and asked to call for assistance, pt verbalized understanding, call light in reach, bed in low and locked position, bed alarm on, fall and aspiration precautions in place, care endorsed to Elaine WALLIS.
--- NOTE | 2018-11-04 19:25 | NUR ---
CHANGE OF SHIFT: pt. on high fowlers position. awake, alert and oriented, son at bedside. still appears SOB on exertion, O2 2 4l/nc, occasional bouts of cough noted. IV infusing via left hand. call light within reach, bed in low position.
[2018-11-04 20:15] VITALS: BP_SYST 108
[2018-11-04] MEDS: CARVEDILOL 6.25 MG TABLET (COREG) PO SCH (20:18)
[2018-11-04] MEDS: QUEtiapine FUMARATE 25 MG TABLET PO SCH (20:19)
[2018-11-04] MEDS: VRAYLAR 3 MG PO SCH (20:25)
--- NOTE | 2018-11-04 20:30 | NUR ---
NOTES: due breathing treatment in progress. Due HS care done by FUTURES TRADER, pt. voided per bedpan.
--- NOTE | 2018-11-04 21:00 | NUR ---
NOTES: Due po meds given and also Ativan for anxiety per pt. request. pt. needs attended.
--- NOTE | 2018-11-05 00:30 | NUR ---
NOTES: awakened for breathing treatment. repositioned self for comfort.
--- NOTE | 2018-11-05 02:02 | NUR ---
NOTES; pt. sleeping when checked , on semi fowlers position. cardiac pattern unchanged.
[2018-11-05 02:18] VITALS: BP_SYST 108
[2018-11-05] MEDS: IPRATROPIUM/ALBUTEROL SULFATE 3 ML AMPUL.NEB (DUONEB) INH SCH ×6 (02:20→23:11)
[2018-11-05] MEDS: POTASSIUM CHLORIDE 30 MEQ in NACL 0.9% 1,000 ML IV SCH ×2 (02:36→16:41)
--- NOTE | 2018-11-05 05:00 | NUR ---
NOTES: awakened and used bedpan and voided. IVF infusing. in no acute distress.
[2018-11-05] MEDS: methylPREDNISolone SOD SUCC/PF 62.5 MG/ML VIAL IVP SCH (05:16)
[2018-11-05 05:42] LABS: EOSINOPHILS % (AUTO) 0.1 % (0.0-4.0); HEMOGLOBIN 11.6 g/dL (12.0-16.0); LYMPHOCYTES # (AUTO) 0.7 K/uL (1.0-5.5); LYMPHOCYTES % (AUTO) 4.9 % (20.5-51.5); MEAN CORPUSCULAR HEMOGLOBIN 33 pg (27-31); MEAN CORPUSCULAR HGB CONC 35 % (32-36); MEAN CORPUSCULAR VOLUME 93 fL (79.0-98.0); MONOCYTES # (AUTO) 0.4 K/uL (0.0-1.0); MONOCYTES % (AUTO) 2.9 % (1.7-9.3); NEUTROPHILS # (AUTO) 12.6 K/uL (1.8-7.7); NEUTROPHILS % (AUTO) 92.1 % (40.0-70.0); PLATELET COUNT (AUTO) 323 K/uL (130-430); RED BLOOD CELL COUNT(AUTO) 3.55 MIL/uL (4.2-6.2); RED CELL DISTRIBUTION WIDTH 13.2 % (9.0-15.0); WHITE BLOOD COUNT (AUTO) 13.7 K/uL (4.8-10.8)
--- NOTE | 2018-11-05 06:00 | NUR ---
NOTES: awakened. due medication given, feeling better this am. pt. needs attended. call light within reach. for further care and assistance.
[2018-11-05 06:45] LABS: CALCIUM 8.4 mg/dL (8.4-11.0); CREATININE 0.69 mg/dL (0.55-1.30); POTASSIUM 4.8 mmol/L (3.5-5.1)
[2018-11-05 06:56] LABS: ALBUMIN 2.1 g/dL (3.4-4.8); TOTAL BILIRUBIN 0.4 mg/dL (0.0-1.0)
[2018-11-05] MEDS: LORazepam 1 MG TABLET PO PRN ×2 (06:57→18:34)
--- NOTE | 2018-11-05 07:00 | NUR ---
CLOSING NOTES; PT. CALLED AND GETTING ANXIOUS AND WANTS ATIVAN AND GIVEN. PT. NEEDS ATTENDED.
--- NOTE | 2018-11-05 07:25 | NUR ---
endorsed pt. to incoming shift with nurse Nini.
[2018-11-05 07:40] VITALS: BP_SYST 119
--- NOTE | 2018-11-05 07:40 | NUR ---
INITIAL ROUNDS Received pt AAOx4, no s/s resp distress, no c/o pain or discomfort. Plan of care for the day reviewed with pt-pt verbalized her understanding. IVF infusing well to left hand at ordered rate with no s/s infiltration to site. Pain management, disease process, skin and safety discussed-teach back done. Call light within reach.
--- NOTE | 2018-11-05 07:50 | NUR ---
INITIAL ROUNDS Received pt AAOx4, no s/s resp distress, no c/o pain or discomfort. Plan of care for the day reviewed with pt-pt verbalized his understanding. IVF infusing well to right hand at ordered rate with no s/s infiltration to site. Pain management, low potassium, skin and safety discussed-teach back done. Pt observed ambulating to bathroom with steady gait. Call light within reach. Addendum: 11/05/18 at 0807 by Nini Nova RN DOCUMENTED ON WRONG PT.
--- NOTE | 2018-11-05 08:38 | NUR ---
Nutrition Update Danie Scale 15 noted. Pt admitted for pneumonia Diet: cardiac low cholesterol low fat 2gm Na diet BMI: 24 kg/m2 RD to follow per nutrition care standards.
[2018-11-05] MEDS: cefTRIAXone 1 GM in D5W 50 ML IV SCH (08:44)
[2018-11-05] MEDS: CARVEDILOL 6.25 MG TABLET (COREG) PO SCH ×2 (08:45→21:22)
[2018-11-05] MEDS: PARoxetine HCL 20 MG TABLET PO SCH (08:45)
[2018-11-05] MEDS: POTASSIUM CHLORIDE 20 MEQ TAB.PRT.SR PO SCH ×2 (08:45→21:22)
[2018-11-05] MEDS: ASPIRIN 81 MG TAB.CHEW PO SCH (08:46)
[2018-11-05] MEDS: PANTOPRAZOLE SODIUM 40 MG TAB PO SCH (08:46)
[2018-11-05] MEDS: FUROSEMIDE 40 MG TABLET PO SCH (08:46)
[2018-11-05] MEDS: LOSARTAN POTASSIUM 25 MG TABLET PO SCH (08:46)
[2018-11-05] MEDS: TOPIRAMATE 25 MG TABLET(TOPAMAX) PO SCH (08:46)
[2018-11-05] MEDS: ENOXAPARIN SODIUM 60 MG/0.6 ML SYRINGE SUBCUT SCH (08:47)
[2018-11-05] MEDS ORDERED: SPIRONOLACTONE 25 MG TABLET (ALDACTONE) PO ONE (10:00)
--- NOTE | 2018-11-05 10:05 | NUR ---
ROUNDS Pt sitting up in bed visiting with her son, with no s/s resp distress, no c/o pain or discomfort. Pt given fresh ice water, pt assisted to the bathroom earlier with steady gait, pt voided. Needs met, call light within reach.
[2018-11-05 11:04] VITALS: BP_SYST 110
[2018-11-05] MEDS ORDERED: MULTIVITS,CA,MINERALS/IRON/FA 1 TABLET PO ONE (12:15)
[2018-11-05] MEDS ORDERED: ASPIRIN 81 MG TABLET(ECOTRIN) PO ONE (12:30)
--- NOTE | 2018-11-05 12:35 | NUR ---
ROUNDS Pt sitting up in bed with no s/s resp distress, no c/o pain or discomfort. Pt rounds done with Dr. Brand. Pt given fresh water. Call light within reach.
--- NOTE | 2018-11-05 14:21 | NUR ---
Dietitian Recommendations *Recommend Cardiac Low Cholesterol Low Fat 2 gm Na diet w/ Ensure Enlive BID. Oral nutritional supplement will provide additional 700 kcal and 40 gm protein daily. *Encourage pt to increase PO intake. Please see Nutritional Assessment for details. ELYSIA, RD
--- NOTE | 2018-11-05 14:30 | NUR ---
ROUNDS Pt sitting up in bed with no s/s resp distress, sporadic non-productive cough noted. No c/o pain or discomfort. Pt given chap stick per request. Needs met, call light within reach.
[2018-11-05 16:15] VITALS: BP_SYST 112
--- NOTE | 2018-11-05 16:45 | NUR ---
ROUNDS Pt sitting up in bed visiting with her friends, no c/o shortness of breath, no c/o pain or discomfort. Needs met, call light within reach.
[2018-11-05] MEDS: LEVOFLOXACIN 500 MG TABLET PO SCH (18:29)
--- NOTE | 2018-11-05 18:56 | NUR ---
CLOSING NOTE Pt sitting up in bed with no s/s resp distress, no c/o pain or discomfort, pt was feeling anxious-given Ativan as ordered. IVF infusing well to left hand at ordered rate with no s/s infiltration to site. Needs met, call light within reach.
--- NOTE | 2018-11-05 19:35 | NUR ---
OPENING NOTES PT and endorsement received from day shift nurse Nini. Pt is AAOx4, lying in bed. Pt on O2 inhalation at 2L/min via nasal cannula. Pt on IVF of NS with 30mEq KCL at 75ml/hr and infusing well on left hand G22. No complains of pain or discomfort. No signs of acute distress or SOB noted. Encouraged to use call light when needed. Safety precautions in place with 3 side rails up, bed alarm on and at lowest level, call light with pt. Will continue to monitor.
[2018-11-05 21:16] VITALS: BP_SYST 107
[2018-11-05] MEDS: QUEtiapine FUMARATE 25 MG TABLET PO SCH (21:21)
[2018-11-05] MEDS: VRAYLAR 3 MG PO SCH (21:23)
--- NOTE | 2018-11-05 22:00 | NUR ---
RESTING Pt is resting in bed with both eyes closed. With visible chest rise and fall with unlabored breathing noted. No signs of acute distress noted. Safety precautions in place and call light with pt. Will continue to monitor.
--- NOTE | 2018-11-06 00:05 | NUR ---
ROUNDS Pt is AAOx4, KORI Gustafson assisted pt to use the urinal. Pt tolerated well. No complains of pain or discomfort at this time. No signs of acute distress noted. Safety precautions in place and call light with pt. Will continue to monitor.
--- NOTE | 2018-11-06 02:21 | NUR ---
RESTING Pt is resting in bed with both eyes closed. With visible chest rise and fall with unlabored breathing noted. No signs of acute distress or SOB noted. Safety precautions in place and call light with pt. Will continue to monitor.
[2018-11-06] MEDS: IPRATROPIUM/ALBUTEROL SULFATE 3 ML AMPUL.NEB (DUONEB) INH SCH ×6 (03:00→23:15)
--- NOTE | 2018-11-06 04:15 | NUR ---
ROUNDS Pt got up the bed. Assisted pt to sit on the chair. Pt states she just want to sit on a chair for a while. Waited until pt decided to go back to bed and then assisted her back to bed. No complains of pain or discomfort at this time. No signs of acute distress or SOB noted. Safety precautions in place and call light with pt. Will continue to monitor.
[2018-11-06] MEDS ORDERED: KCL 20 mEq in 100 mL (PREMIX) 200 ML IV ONE (06:09)
[2018-11-06] MEDS: POTASSIUM CHLORIDE 30 MEQ in NACL 0.9% 1,000 ML IV SCH (06:21)
--- NOTE | 2018-11-06 06:45 | NUR ---
CLOSING NOTES Pt is resting in bed with both eyes closed. With visible chest rise and fall with unlabored breathing noted. No signs of acute distress. All needs attended throughout the shift. Safety precautions in place and call light with pt. Will endorse to day shift nurse.
[2018-11-06 06:51] LABS: BASOPHILS % (AUTO) 0.1 % (0.0-2.0); EOSINOPHILS % (AUTO) 0.1 % (0.0-4.0); HEMOGLOBIN 11.6 g/dL (12.0-16.0); LYMPHOCYTES # (AUTO) 1.9 K/uL (1.0-5.5); LYMPHOCYTES % (AUTO) 18.7 % (20.5-51.5); MEAN CORPUSCULAR HEMOGLOBIN 33 pg (27-31); MEAN CORPUSCULAR HGB CONC 34 % (32-36); MEAN CORPUSCULAR VOLUME 96 fL (79.0-98.0); MONOCYTES # (AUTO) 0.7 K/uL (0.0-1.0); MONOCYTES % (AUTO) 6.8 % (1.7-9.3); NEUTROPHILS # (AUTO) 7.6 K/uL (1.8-7.7); NEUTROPHILS % (AUTO) 74.3 % (40.0-70.0); PLATELET COUNT (AUTO) 329 K/uL (130-430); RED BLOOD CELL COUNT(AUTO) 3.56 MIL/uL (4.2-6.2); RED CELL DISTRIBUTION WIDTH 13.3 % (9.0-15.0); WHITE BLOOD COUNT (AUTO) 10.2 K/uL (4.8-10.8)
[2018-11-06 06:54] LABS: CALCIUM 8.8 mg/dL (8.4-11.0); CREATININE 0.81 mg/dL (0.55-1.30); POTASSIUM 4.8 mmol/L (3.5-5.1)
--- NOTE | 2018-11-06 07:40 | NUR ---
AM rounds patient resting in bed, a/ox4, denies pain, assessment complete, IV line is patent and infusing well, educated on plan of care and call light system and to call for any assistance, she verbalized understanding, bed in lowest position, two side rails up, bed alarm on, call light within reach, fall and aspiration precautions in place.
[2018-11-06 08:20] VITALS: BP_SYST 120
[2018-11-06] MEDS: LOSARTAN POTASSIUM 25 MG TABLET PO SCH (08:57)
[2018-11-06] MEDS: MULTIVITS,CA,MINERALS/IRON/FA 1 TABLET PO SCH (08:57)
[2018-11-06] MEDS: ASPIRIN 81 MG TABLET(ECOTRIN) PO SCH (08:58)
[2018-11-06] MEDS: TOPIRAMATE 25 MG TABLET(TOPAMAX) PO SCH (08:58)
[2018-11-06] MEDS: CARVEDILOL 6.25 MG TABLET (COREG) PO SCH ×2 (08:58→21:00)
[2018-11-06] MEDS: PREDNISONE 20 MG TABLET PO SCH (08:58)
[2018-11-06] MEDS: PANTOPRAZOLE SODIUM 40 MG TAB PO SCH (08:58)
[2018-11-06] MEDS: POTASSIUM CHLORIDE 20 MEQ TAB.PRT.SR PO SCH ×2 (08:58→21:24)
[2018-11-06] MEDS: SPIRONOLACTONE 25 MG TABLET (ALDACTONE) PO SCH (08:59)
[2018-11-06] MEDS: FUROSEMIDE 40 MG TABLET PO SCH (08:59)
[2018-11-06] MEDS: PARoxetine HCL 20 MG TABLET PO SCH (09:10)
[2018-11-06] MEDS: cefTRIAXone 1 GM in D5W 50 ML IV SCH (09:10)
[2018-11-06] MEDS: LORazepam 1 MG TABLET PO PRN ×2 (09:10→21:25)
--- NOTE | 2018-11-06 10:00 | NUR ---
Medications patient resting in bed, awake, denies pain, educated on medications uses and potential side effects, she verbalized understanding and tolerated well, IV line is patent and infusing well, assisted the patient to the restroom, steady gait, assisted back into bed, patient tolerated well, no other needs at this time, bed in lowest position, two side rails up, bed alarm on, call light within reach, fall and aspiration precautions in place, continuing to monitor.
[2018-11-06 11:08] VITALS: BP_SYST 108
--- NOTE | 2018-11-06 12:30 | NUR ---
RN rounds patient resting in bed, denies pain, denies shortness of breath, eating lunch, aspiration precautions in place, continuing to monitor, bed in lowest position, two side rails up, call light within reach, fall precautions in place, call light placed within reach.
--- NOTE | 2018-11-06 14:04 | NUR ---
RN rounds patient resting in bed, eyes closed, breathing is even and unlabored, no signs of distress, continuing to monitor the patient, bed in lowest position, two side rails up, call light within reach, fall and aspiration precautions in place.
--- NOTE | 2018-11-06 15:04 | NUR ---
Case mgt:Met w/pt at bedside at 1345. She denies hx of falls at home and says she has been independent w/all ADLS and her son Bala can stay with her if needed. Pt ambulated to bathroom with steady gait and no SOB w/ambulation. Will f/u as needed for dc planning. Rec'd new order for Life [employer] at 1450. Aurelia Powers will fax order to [employer] [facility]. JUAN JOSE WALLIS Addendum: 11/06/18 at 1508 by Cass Aguilar RN [employer] ph#[phone]--fax#[phone]..Rep is Figueroa Chase at cell#[phone] Addendum: 11/06/18 at 1516 by Cass Aguilar RN I s/w Figueroa Chase at [facility]. He said Lloyd Jain is the new [facility] Life Vest customer retention representative and he will have Lloyd call me re: order. RN
[2018-11-06 15:06] VITALS: BP_SYST 114
--- NOTE | 2018-11-06 15:27 | NUR ---
Discharge Planning: DCP faxed pt referral to [employer] (f [phone] p [phone]);DCP to follow up.
--- NOTE | 2018-11-06 15:34 | NUR ---
RN Rounds patient out of bed to restroom, steady gait, tolerating room air, denies shortness of breath, aware of DC planning for lifevest per Dr. Pineda, no other needs at this time, bed in lowest position, two side rails up, call light placed within reach, fall and aspiration precautions in place.
--- NOTE | 2018-11-06 16:04 | NUR ---
DC planning: Rec'd call from Lloyd Jain from [employer] -His ph#[phone]--He requested Bree from [employer] to call me also-Her ph#[phone]--Bree is aware Dr. Brand entered order for [employer] [facility] per recommendation of veterinary dentist Dr. Pineda. I gave Bree both MD's phone numbers and she will contact them. I faxed to Bree the echo report and EKG per her request to her fax#[phone]. Bree needs one of the patients' MDs to sign the order. Bree is faxing the order to Dr. Brand. JUAN JOSE WALLIS
--- NOTE | 2018-11-06 16:37 | NUR ---
Dr. Brand rounds assessed patient at bedside, reiterated DC planning, patient verbalized understanding.
--- NOTE | 2018-11-06 17:44 | NUR ---
Renal Ultrasound at bedside at this time, patient tolerating well.
[2018-11-06] MEDS: LEVOFLOXACIN 500 MG TABLET PO SCH (17:53)
--- NOTE | 2018-11-06 18:01 | NUR ---
Medication patient resting in bed, awake, denies pain, denies shortness of breath, educated on medication uses and potential side effects, she verbalized understanding and tolerated well, no other needs at this time, bed in lowest position, two side rails up, call light placed within reach, fall and aspiration precautions in place.
--- NOTE | 2018-11-06 18:31 | NUR ---
Closing note patient resting in bed, her family is at bedside, patient is in stable condition, all needs met, will endorse report to NOC shift nurse, bed in lowest position, two side rails up, fall and aspiration precautions in place.
--- NOTE | 2018-11-06 19:30 | NUR ---
Initial PM Note Pt was received lying comfortably in bed fully awake, alert and oriented x4. Speech is clear an pt is able to make her needs known. No c/o pain or discomfort at this time. Saline lock in LH is without any signs of infiltration. Fall and safety precautions are in place. Pt was instructed to call for assistance as needed and pt verbalized understanding. Call light is with pt and bed alarm is on.
[2018-11-06 20:00] VITALS: BP_SYST 97
[2018-11-06] MEDS ORDERED: ENOXAPARIN SODIUM 40 MG/0.4 ML SYRINGE SUBCUT SCH (21:00)
[2018-11-06] MEDS: VRAYLAR 3 MG PO SCH (21:23)
--- NOTE | 2018-11-06 21:25 | NUR ---
Anxiety Pt c/o anxiety and stated it is because she quit smoking "cold turkey." Pt stated she takes Ativan and Seroquel together and does not feel dizzy or drowsy after taking both. Ativan 1mg was given po with relief. Pt declined bed alarm, but stated she will call for assistance as needed. Pt also stated she will just use bedpan if she needs toileting during the night.
[2018-11-06] MEDS: QUEtiapine FUMARATE 25 MG TABLET PO SCH (21:26)
--- NOTE | 2018-11-06 23:00 | NUR ---
Rounds Pt is sleeping without any distress noted. Fall and safety precautions are in place.
[2018-11-07 00:48] VITALS: BP_SYST 114
--- NOTE | 2018-11-07 01:00 | NUR ---
Rounds Pt is sleeping comfortably in bed. Fall and safety precautions are in place. Call light is with pt. Bed is in the lowest and locked positions.
[2018-11-07] MEDS: IPRATROPIUM/ALBUTEROL SULFATE 3 ML AMPUL.NEB (DUONEB) INH SCH ×4 (02:52→15:52)
--- NOTE | 2018-11-07 03:00 | NUR ---
Rounds Pt is sleeping without any distress noted. Fall and safety precautions are in place.
--- NOTE | 2018-11-07 05:00 | NUR ---
Rounds Pt is sleeping comfortably in bed. Fall and safety precautions are in place.
--- NOTE | 2018-11-07 06:48 | NUR ---
Closing Note Pt is awake and resting quietly in bed. All pt's needs were attended to. No fall or injury noted this shift. Will endorse to day shift nurse.
[2018-11-07 07:16] LABS: CALCIUM 8.8 mg/dL (8.4-11.0); CREATININE 0.86 mg/dL (0.55-1.30)
--- NOTE | 2018-11-07 07:37 | NUR ---
OPENING NOTE At initial assessment, patient is awake, alert and oriented x4. Denies any pain/discomfort at this time. Breathing even and unlabored, patient on room air. IV site on left hand 22G patent and intact, saline locked. Safety and fall precautions in place, bed is in lowest position and locked, side rails up x3, call light within reach, will continue to monitor.
[2018-11-07 08:00] VITALS: BP_SYST 124
[2018-11-07] MEDS: cefTRIAXone 1 GM in D5W 50 ML IV SCH (08:21)
[2018-11-07] MEDS: MULTIVITS,CA,MINERALS/IRON/FA 1 TABLET PO SCH (08:22)
[2018-11-07] MEDS: FUROSEMIDE 40 MG TABLET PO SCH (08:22)
[2018-11-07] MEDS: PARoxetine HCL 20 MG TABLET PO SCH (08:22)
[2018-11-07] MEDS: ASPIRIN 81 MG TABLET(ECOTRIN) PO SCH (08:22)
[2018-11-07] MEDS: TOPIRAMATE 25 MG TABLET(TOPAMAX) PO SCH (08:23)
[2018-11-07] MEDS: POTASSIUM CHLORIDE 20 MEQ TAB.PRT.SR PO SCH (08:23)
[2018-11-07] MEDS: PREDNISONE 20 MG TABLET PO SCH (08:23)
[2018-11-07] MEDS: PANTOPRAZOLE SODIUM 40 MG TAB PO SCH (08:23)
[2018-11-07] MEDS: CARVEDILOL 6.25 MG TABLET (COREG) PO SCH (08:24)
[2018-11-07] MEDS: LORazepam 1 MG TABLET PO PRN (08:32)
[2018-11-07] MEDS: SPIRONOLACTONE 25 MG TABLET (ALDACTONE) PO SCH (10:51)
[2018-11-07] MEDS: LOSARTAN POTASSIUM 25 MG TABLET PO SCH (10:52)
[2018-11-07 12:02] VITALS: BP_SYST 112
--- NOTE | 2018-11-07 12:10 | NUR ---
MD ROUNDS Dr. Brand at bedside.
[2018-11-07] MEDS ORDERED: CEPH-568 PO (12:51)
[2018-11-07] MEDS ORDERED: CARV12.548 PO (12:52)
[2018-11-07] MEDS ORDERED: ASPI-1154 PO (12:52)
[2018-11-07] MEDS ORDERED: LOSA25TA3 PO (12:54)
[2018-11-07] MEDS ORDERED: PRO40 PO (12:55)
[2018-11-07] MEDS ORDERED: POTA20TA83 PO (12:55)
[2018-11-07] MEDS ORDERED: PRED10TA PO (12:56)
[2018-11-07] MEDS ORDERED: MULT-300 PO (12:57)
[2018-11-07] MEDS ORDERED: L.RH1CAP PO (12:57)
[2018-11-07] MEDS ORDERED: PRED5TAB PO (13:00)
[2018-11-07 13:19] VITALS: BP_SYST 112
--- NOTE | 2018-11-07 13:30 | NUR ---
LIFE VEST Patient and family educated on life vest by [employer] claims consultant. No further questions at this time.
--- NOTE | 2018-11-07 15:28 | NUR ---
Discharge Planning: [facility] (f [phone] p [phone]) accepted pt, DCP made pt and nurse aware.
[2018-11-07 16:02] VITALS: BP_SYST 107
--- NOTE | 2018-11-07 16:23 | NUR ---
ROUNDS Patient is awake, no c/o pain, no respiratory distress noted. IV site patent and intact. Call light within reach, will continue to monitor.
--- NOTE | 2018-11-07 17:00 | NUR ---
D/C Patient Patient given medication reconciliation form and D/C instructions. Exit Care provided. Patient verbalized understanding. MD discussed with patient the results and treatment provided. Ambulatory with steady gait for discharge to home. Patient in stable condition, ID band removed. IV catheter removed, intact and dressing applied, no active bleeding. Patient educated on pain management. All belongings sent with patient. Assisted patient and son, Gil, out via wheelchair.
--- NOTE | 2018-11-11 11:58 | NUR ---
DISCHARGE FOLLOW UP PHONE CALL INSURANCE AUDITOR phoned pt who states she is doing well. Pt states she was able to fill her prescription and has been getting a lot of help from her son who has organized all her medications. Pt states she made an appointment with her Waste Treatment Operator on 11/15 and is aware of the f/u echocardiogram in 3 months. Pt states [facility] has started services starting on 11/08. Pt states her son and herself have been reading the discharge instructions given and they have no questions at this time. Pt states she will bring her discharge instructions and medication list to her appointment. INSURANCE AUDITOR offered for a follow up phone call by the swing grinder regarding her low sodium and water intake diet, pt declined and states they have been doing it themselves and understood what needs to be done. INSURANCE AUDITOR encouraged pt to call if any questions arise. No further SS follow up needed at this time.
== END 2018-11-07 17:05 | disposition home health service (06) | DRG 871 ==
LOC: SED 12:33 → STU 14:18
PROVIDERS: ADMIT Internal Medicine; ATTEND Internal Medicine
DX: A41.9 Sepsis, unspecified organism (principal); I21.A1 Myocardial infarction type 2; J96.01 Acute respiratory failure with hypoxia; J18.1 Lobar pneumonia, unspecified organism; I50.43 Acute on chronic combined systolic (congestive) and diastolic (congestive) heart failure; J44.1 Chronic obstructive pulmonary disease with (acute) exacerbation; E87.1 Hypo-osmolality and hyponatremia; I42.0 Dilated cardiomyopathy; J44.0 Chronic obstructive pulmonary disease with (acute) lower respiratory infection; I24.8 Other forms of acute ischemic heart disease; E87.6 Hypokalemia; E86.0 Dehydration; F17.210 Nicotine dependence, cigarettes, uncomplicated; F31.9 Bipolar disorder, unspecified; F17.200 Nicotine dependence, unspecified, uncomplicated; F41.9 Anxiety disorder, unspecified; J20.9 Acute bronchitis, unspecified; N28.9 Disorder of kidney and ureter, unspecified; I25.10 Atherosclerotic heart disease of native coronary artery without angina pectoris; Z80.3 Family history of malignant neoplasm of breast; Z88.1 Allergy status to other antibiotic agents; Z88.2 Allergy status to sulfonamides; Z79.4 Long term (current) use of insulin
CPT/HCPCS: 36415; 36600; 71045; 74021; 76770; 80048; 80053; 80061; 80307; 81000-TC; 82150-TC; 82550-TC; 82553-TC; 82803-TC; 82962; 83605; 83690-TC; 83735-TC; 83880; 84484; 85025; 85610-TC; 85730-TC; 87040-TC; 93005; 93306; 94640; 94760; 96361; 96365; 96375; 99285; G0378; J0456; J0696; J1650; J2930; J3480; J7030; J7050; J7060; J7512; J7613; J7620

== ENCOUNTER 2019-02-28 11:31 | Outpatient (CLI) | payer OTHER, MEDICAID ==
[~2019-02-28 11:31] MED LIST changes: +ASPI-1154 PO; +CARV12.548 PO; +CEPH-568 PO; +L.RH1CAP PO; +LOSA25TA3 PO; +MULT-300 PO; +POTA20TA83 PO; +PRED10TA PO; +PRED5TAB PO
== END 2019-02-28 21:22 | disposition home or self-care (01) ==
LOC: SCA 11:31
PROVIDERS: ATTEND Internal Medicine Cardiovascular Disease
DX: I08.1 Rheumatic disorders of both mitral and tricuspid valves (principal)
CPT/HCPCS: 93306

== ENCOUNTER 2021-02-05 11:34 | Inpatient (IN) | payer OTHER, MEDICAID, SELFPAY ==
[~2021-02-05] VITALS: Ht 167.6 cm; Wt 74.4 kg
[~2021-02-05 11:34] MED LIST changes: -ASPI-1154 PO; +ASPI-1457 PO
[2021-02-05 11:42] VITALS: BP_SYST 119
[2021-02-05] MEDS ORDERED: ONDANSETRON HCL 4 MG/2 ML VIAL IVP ONE ×2 (12:15→14:30)
[2021-02-05] MEDS ORDERED: NACL 0.9% 1,000 ML IV ONE (12:15)
[2021-02-05 13:02] LABS: BASOPHILS % (AUTO) 0.5 % (0.0-2.0); EOSINOPHILS # (AUTO) 0.2 K/uL (0.0-0.4); EOSINOPHILS % (AUTO) 2.5 % (0.0-4.0); HEMATOCRIT 46.9 % (36-48); HEMOGLOBIN 15.7 g/dL (12.0-16.0); LYMPHOCYTES # (AUTO) 1.4 K/uL (1.0-5.5); LYMPHOCYTES % (AUTO) 17.6 % (20.5-51.5); MEAN CORPUSCULAR HEMOGLOBIN 33 pg (27-31); MEAN CORPUSCULAR HGB CONC 33 % (32-36); MEAN CORPUSCULAR VOLUME 98 fL (79.0-98.0); MONOCYTES # (AUTO) 0.3 K/uL (0.0-1.0); MONOCYTES % (AUTO) 3.3 % (1.7-9.3); NEUTROPHILS % (AUTO) 76.1 % (40.0-70.0); PLATELET COUNT (AUTO) 327 K/uL (130-430); RED BLOOD CELL COUNT(AUTO) 4.79 MIL/uL (4.2-6.2); RED CELL DISTRIBUTION WIDTH 13.8 % (9.0-15.0); WHITE BLOOD COUNT (AUTO) 7.8 K/uL (4.8-10.8)
[2021-02-05 13:14] LABS: ANION GAP 7 (5-15); CALCIUM 9.1 mg/dL (8.4-11.0); CHLORIDE 96 mmol/L (98-107); CREATININE 0.65 mg/dL (0.55-1.30); GLUCOSE 108 mg/dL (70-99); POTASSIUM 4.3 mmol/L (3.5-5.1); SODIUM SERUM 131 mmol/L (136-145); UREA NITROGEN, BLOOD 4 mg/dL (8-21)
[2021-02-05 13:21] LABS: ALANINE AMINOTRANSFERASE 26 U/L (12-78); ALBUMIN 4.1 g/dL (3.4-4.8); ASPARTATE AMINOTRANSFERASE 16 U/L (10-37); TOTAL BILIRUBIN 0.3 mg/dL (0.0-1.0)
[2021-02-05 13:58] LABS: BILIRUBIN,URINE NEGATIVE (NEGATIVE); CLARITY/URINE CLEAR (CLEAR); COLOR,URINE YELLOW (YELLOW); GLUCOSE,URINE NEGATIVE (NEGATIVE); KETONES,URINE NEGATIVE (NEGATIVE); LEUKOCYTE ESTERASE ,URINE NEGATIVE (NEGATIVE); NITRITE, URINE NEGATIVE (NEGATIVE); PH,URINE 6.5 (5.0-8.0); PROTEIN URINE NEGATIVE (NEGATIVE); UROBILINOGEN,URINE 0.2 (0.2-1.0)
[2021-02-05 14:09] LABS: BLOOD, URINE TRACE (NEGATIVE)
[2021-02-05 14:11] LABS: BACTERIA,URINE FEW /HPF (None Seen); MUCUS,URINE None Seen /LPF (None Seen); WBC,URINE NONE SEEN /HPF (0-3)
[2021-02-05] MEDS ORDERED: CARV3.1246 PO (14:31)
[2021-02-05] MEDS ORDERED: LOSA25TA3 PO (14:31)
[2021-02-05] MEDS ORDERED: LORazepam 2 MG/ML VIAL IVP ONE (15:00)
[2021-02-05 16:00] VITALS: BP_SYST 123
[2021-02-05 16:11] VITALS: BP_SYST 123
[2021-02-05] MEDS ORDERED: ONDANSETRON HCL 4 MG/2 ML VIAL IVP PRN (18:00)
[2021-02-05 20:00] VITALS: BP_SYST 143
[2021-02-05] MEDS: traZODone HCL 50 MG TABLET (DESYREL) PO SCH (21:25)
[2021-02-05] MEDS: CARVEDILOL 3.125 MG TABLET (COREG) PO SCH (21:26)
[2021-02-05] MEDS: POTASSIUM CHLORIDE 10 MEQ in NACL 0.9% 1,000 ML IV SCH (21:59)
[2021-02-06] VITALS (16 sets, daily range): BP systolic 86–149
[2021-02-06] MEDS ORDERED: IPRATROPIUM/ALBUTEROL SULFATE 3 ML AMPUL.NEB (DUONEB) INH ONE ×2 (00:15→08:30)
[2021-02-06] MEDS: LORazepam 2 MG/ML VIAL IVP PRN ×3 (01:35→19:31)
[2021-02-06 03:34] LABS: ANION GAP 4 (5-15); CALCIUM 8.4 mg/dL (8.4-11.0); CHLORIDE 98 mmol/L (98-107); CREATININE 0.68 mg/dL (0.55-1.30); GLUCOSE 148 mg/dL (70-99); POTASSIUM 3.9 mmol/L (3.5-5.1); SODIUM SERUM 132 mmol/L (136-145); UREA NITROGEN, BLOOD 8 mg/dL (8-21)
[2021-02-06 03:48] LABS: THYROID STIMULATING HORMONE 0.96 uIu/mL (0.36-3.74)
[2021-02-06 08:48] LABS: BASOPHILS % (AUTO) 0.2 % (0.0-2.0); HEMATOCRIT 42.2 % (36-48); HEMOGLOBIN 14.3 g/dL (12.0-16.0); LYMPHOCYTES # (AUTO) 1.3 K/uL (1.0-5.5); LYMPHOCYTES % (AUTO) 13.2 % (20.5-51.5); MEAN CORPUSCULAR HEMOGLOBIN 33 pg (27-31); MEAN CORPUSCULAR HGB CONC 34 % (32-36); MEAN CORPUSCULAR VOLUME 96 fL (79.0-98.0); MONOCYTES # (AUTO) 0.8 K/uL (0.0-1.0); MONOCYTES % (AUTO) 8.1 % (1.7-9.3); NEUTROPHILS % (AUTO) 78.5 % (40.0-70.0); PLATELET COUNT (AUTO) 287 K/uL (130-430); RED BLOOD CELL COUNT(AUTO) 4.38 MIL/uL (4.2-6.2); RED CELL DISTRIBUTION WIDTH 13.7 % (9.0-15.0); WHITE BLOOD COUNT (AUTO) 10.1 K/uL (4.8-10.8)
[2021-02-06] MEDS: PANTOPRAZOLE SODIUM 40 MG TAB PO SCH (09:31)
[2021-02-06] MEDS: PARoxetine HCL 20 MG TABLET PO SCH (09:32)
[2021-02-06] MEDS: ASPIRIN 81 MG TABLET(ECOTRIN) PO SCH (09:32)
[2021-02-06] MEDS: CARVEDILOL 3.125 MG TABLET (COREG) PO SCH ×2 (09:33→21:00)
[2021-02-06] MEDS: LOSARTAN POTASSIUM 25 MG TABLET PO SCH (09:33)
[2021-02-06] MEDS: POTASSIUM CHLORIDE 10 MEQ in NACL 0.9% 1,000 ML IV SCH ×2 (09:41→14:06)
[2021-02-06] MEDS: cefTRIAXone 1 GM in D5W 50 ML IV SCH (09:41)
[2021-02-06 09:44] LABS: AMYLASE 72 U/L (0-100); LIPASE 157 U/L (73-393)
[2021-02-06] MEDS: IPRATROPIUM/ALBUTEROL SULFATE 3 ML AMPUL.NEB (DUONEB) INH SCH ×2 (13:34→20:26)
[2021-02-06] MEDS ORDERED: methylPREDNISolone SOD SUCC 40 MG/ML VIAL IVP ONE (14:45)
[2021-02-06] MEDS ORDERED: ACETAMINOPHEN 325 MG TABLET ONE (16:27)
[2021-02-06] MEDS ORDERED: ACETAMINOPHEN 325 MG TABLET PO PRN (19:00)
[2021-02-06] MEDS ORDERED: FLU VACC QS2020-21(65UP)/PF 0.7 ML/SYRINGE I.M. ONE (19:45)
[2021-02-06] MEDS: traZODone HCL 50 MG TABLET (DESYREL) PO SCH (21:17)
[2021-02-06] MEDS: methylPREDNISolone SOD SUCC 40 MG/ML VIAL IVP SCH (21:17)
[2021-02-07] VITALS (19 sets, daily range): BP systolic 104–135
[2021-02-07] MEDS: POTASSIUM CHLORIDE 10 MEQ in NACL 0.9% 1,000 ML IV SCH (00:09)
[2021-02-07] MEDS: IPRATROPIUM/ALBUTEROL SULFATE 3 ML AMPUL.NEB (DUONEB) INH SCH ×4 (01:00→19:37)
[2021-02-07] MEDS: LORazepam 2 MG/ML VIAL IVP PRN ×3 (01:53→21:37)
[2021-02-07 06:06] LABS: HEMATOCRIT 38.4 % (36-48); LYMPHOCYTES # (AUTO) 0.7 K/uL (1.0-5.5); MEAN CORPUSCULAR HEMOGLOBIN 33 pg (27-31); MEAN CORPUSCULAR HGB CONC 34 % (32-36); MEAN CORPUSCULAR VOLUME 96 fL (79.0-98.0); MONOCYTES # (AUTO) 0.2 K/uL (0.0-1.0); MONOCYTES % (AUTO) 2.8 % (1.7-9.3); NEUTROPHILS # (AUTO) 6.5 K/uL (1.8-7.7); NEUTROPHILS % (AUTO) 87.2 % (40.0-70.0); PLATELET COUNT (AUTO) 220 K/uL (130-430); RED CELL DISTRIBUTION WIDTH 13.1 % (9.0-15.0); WHITE BLOOD COUNT (AUTO) 7.4 K/uL (4.8-10.8)
[2021-02-07 06:43] LABS: ALANINE AMINOTRANSFERASE 33 U/L (12-78); ALBUMIN 3.2 g/dL (3.4-4.8); ANION GAP 6 (5-15); ASPARTATE AMINOTRANSFERASE 25 U/L (10-37); CALCIUM 8.2 mg/dL (8.4-11.0); CHLORIDE 100 mmol/L (98-107); CREATININE 0.65 mg/dL (0.55-1.30); GLUCOSE 127 mg/dL (70-99); POTASSIUM 4.6 mmol/L (3.5-5.1); SODIUM SERUM 134 mmol/L (136-145); TOTAL BILIRUBIN 0.3 mg/dL (0.0-1.0); UREA NITROGEN, BLOOD 9 mg/dL (8-21)
[2021-02-07] MEDS ORDERED: IPRATROPIUM/ALBUTEROL SULFATE 3 ML AMPUL.NEB (DUONEB) INH PRN (07:00)
[2021-02-07 08:03] LABS: CHOLESTEROL 144 mg/dL (<200); HDL CHOLESTEROL 73 mg/dL (>55); LDL CHOLESTEROL 67 mg/dL (<100); TRIGLYCERIDES 63 mg/dL (30-150)
[2021-02-07] MEDS: ASPIRIN 81 MG TABLET(ECOTRIN) PO SCH (08:51)
[2021-02-07] MEDS: PANTOPRAZOLE SODIUM 40 MG TAB PO SCH (08:51)
[2021-02-07] MEDS: methylPREDNISolone SOD SUCC 40 MG/ML VIAL IVP SCH ×2 (08:51→21:32)
[2021-02-07] MEDS: guaiFENesin/DEXTROMETHORPHAN 1 EACH TAB.ER.12H PO SCH ×2 (08:51→21:31)
[2021-02-07] MEDS: CARVEDILOL 3.125 MG TABLET (COREG) PO SCH ×2 (08:52→21:30)
[2021-02-07] MEDS: cefTRIAXone 1 GM in D5W 50 ML IV SCH (08:53)
[2021-02-07] MEDS: PARoxetine HCL 20 MG TABLET PO SCH (08:54)
[2021-02-07] MEDS: LOSARTAN POTASSIUM 25 MG TABLET PO SCH (10:13)
[2021-02-07] MEDS: traZODone HCL 50 MG TABLET (DESYREL) PO SCH (21:30)
[2021-02-08] MEDS: IPRATROPIUM/ALBUTEROL SULFATE 3 ML AMPUL.NEB (DUONEB) INH SCH ×4 (00:44→19:41)
[2021-02-08 00:50] VITALS: BP_SYST 116
[2021-02-08 06:24] LABS: ANION GAP 6 (5-15); CALCIUM 8.5 mg/dL (8.4-11.0); CHLORIDE 98 mmol/L (98-107); CREATININE 0.69 mg/dL (0.55-1.30); GLUCOSE 123 mg/dL (70-99); POTASSIUM 4.8 mmol/L (3.5-5.1); SODIUM SERUM 133 mmol/L (136-145); UREA NITROGEN, BLOOD 13 mg/dL (8-21)
[2021-02-08] MEDS ORDERED: SIMETHICONE 40 MG/0.6 ML ML ONE (07:27)
[2021-02-08] MEDS ORDERED: MEPERIDINE 100 MG INJ. 100 MG/ML VIAL ONE (07:27)
[2021-02-08 08:00] VITALS: BP_SYST 111
[2021-02-08] MEDS: LORazepam 2 MG/ML VIAL IVP PRN ×3 (08:44→23:34)
[2021-02-08] MEDS: methylPREDNISolone SOD SUCC 40 MG/ML VIAL IVP SCH (08:48)
[2021-02-08] MEDS: cefTRIAXone 1 GM in D5W 50 ML IV SCH (08:49)
[2021-02-08] MEDS ORDERED: predniSONE 20 MG TABLET PO SCH (09:00)
[2021-02-08] MEDS: MIDAZOLAM HCL 5 MG/5 ML VIAL ONE ×3 (11:42→11:50)
[2021-02-08] MEDS: ASPIRIN 81 MG TABLET(ECOTRIN) PO SCH (13:09)
[2021-02-08] MEDS: LOSARTAN POTASSIUM 25 MG TABLET PO SCH (13:10)
[2021-02-08] MEDS: PARoxetine HCL 20 MG TABLET PO SCH (13:10)
[2021-02-08] MEDS: PANTOPRAZOLE SODIUM 40 MG TAB PO SCH (13:10)
[2021-02-08] MEDS: CARVEDILOL 3.125 MG TABLET (COREG) PO SCH ×2 (13:11→20:22)
[2021-02-08] MEDS: guaiFENesin/DEXTROMETHORPHAN 1 EACH TAB.ER.12H PO SCH ×2 (13:11→20:22)
[2021-02-08] MEDS ORDERED: MILK OF MAGNESIA 30 ML UDC PO ONE (13:30)
[2021-02-08 15:29] VITALS: BP_SYST 129
[2021-02-08] MEDS ORDERED: FLU VACC QS2020-21(65UP)/PF 0.7 ML/SYRINGE I.M. ONE (18:19)
[2021-02-08 20:00] VITALS: BP_SYST 126
[2021-02-08] MEDS: traZODone HCL 50 MG TABLET (DESYREL) PO SCH (21:31)
[2021-02-09 00:06] VITALS: BP_SYST 123
[2021-02-09] MEDS: IPRATROPIUM/ALBUTEROL SULFATE 3 ML AMPUL.NEB (DUONEB) INH SCH ×3 (01:00→13:38)
[2021-02-09] MEDS ORDERED: LACTULOSE 20 GM/30 ML UDC PO ONE ×2 (07:45→10:00)
[2021-02-09 08:00] VITALS: BP_SYST 113
[2021-02-09] MEDS: LORazepam 2 MG/ML VIAL IVP PRN ×2 (08:22→15:52)
[2021-02-09] MEDS: CARVEDILOL 3.125 MG TABLET (COREG) PO SCH (08:25)
[2021-02-09] MEDS: guaiFENesin/DEXTROMETHORPHAN 1 EACH TAB.ER.12H PO SCH (08:25)
[2021-02-09] MEDS: ASPIRIN 81 MG TABLET(ECOTRIN) PO SCH (08:26)
[2021-02-09] MEDS: PANTOPRAZOLE SODIUM 40 MG TAB PO SCH (08:26)
[2021-02-09] MEDS: LOSARTAN POTASSIUM 25 MG TABLET PO SCH (08:26)
[2021-02-09] MEDS: cefTRIAXone 1 GM in D5W 50 ML IV SCH (08:27)
[2021-02-09] MEDS: PARoxetine HCL 20 MG TABLET PO SCH (08:32)
[2021-02-09] MEDS ORDERED: predniSONE 20 MG TABLET PO SCH (09:00)
[2021-02-09 12:39] VITALS: BP_SYST 124
[2021-02-09 16:35] VITALS: BP_SYST 115
[2021-02-09 18:19] VITALS: BP_SYST 128
== END 2021-02-09 19:13 | disposition home or self-care (01) | DRG 280 ==
LOC: SED 11:34 → STU 14:31 → SIC 02-06 08:38 → STU 02-07 18:13
PROVIDERS: ADMIT Internal Medicine; ATTEND Internal Medicine
PROC: 0DB78ZX Excision of Stomach, Pylorus, Via Natural or Artificial Opening Endoscopic, Diagnostic (ICD-10-PCS; principal; 2021-02-08 11:30)
DX: I21.A1 Myocardial infarction type 2 (principal); J96.01 Acute respiratory failure with hypoxia; J96.02 Acute respiratory failure with hypercapnia; J44.1 Chronic obstructive pulmonary disease with (acute) exacerbation; I42.0 Dilated cardiomyopathy; E87.1 Hypo-osmolality and hyponatremia; F31.30 Bipolar disorder, current episode depressed, mild or moderate severity, unspecified; K21.9 Gastro-esophageal reflux disease without esophagitis; K25.9 Gastric ulcer, unspecified as acute or chronic, without hemorrhage or perforation; K29.70 Gastritis, unspecified, without bleeding; E78.5 Hyperlipidemia, unspecified; F12.90 Cannabis use, unspecified, uncomplicated; F17.210 Nicotine dependence, cigarettes, uncomplicated; I11.0 Hypertensive heart disease with heart failure; I25.10 Atherosclerotic heart disease of native coronary artery without angina pectoris; I50.9 Heart failure, unspecified; R73.9 Hyperglycemia, unspecified; E86.0 Dehydration; Z20.822 Contact with and (suspected) exposure to COVID-19; Z80.3 Family history of malignant neoplasm of breast; Z88.1 Allergy status to other antibiotic agents; Z88.2 Allergy status to sulfonamides; Z79.899 Other long term (current) drug therapy; Z79.82 Long term (current) use of aspirin; Z71.6 Tobacco abuse counseling
CPT/HCPCS: 36415; 36600; 43239; 71045; 76376; 80048; 80053; 80061; 81000-TC; 82150-TC; 82803-TC; 82962; 83605; 83690-TC; 83735-TC; 83880; 84443-TC; 84484; 85025; 85379; 87040-TC; 87081; 88305; 88312; 88313; 92610-GN; 93005; 93306; 94640; 94760; 96361; 96374; 96375; 96376; 97116-GP; G0378; J0696; J1030; J2060; J2175; J2250; J2405; J3480; J7030; J7040; J7060; J7512

== ENCOUNTER 2021-05-22 06:48 | Emergency (ER) | payer OTHER, MEDICAID ==
[~2021-05-22] VITALS: Ht 167.6 cm; Wt 68.0 kg
[~2021-05-22 06:48] MED LIST changes: -CARI3CAP PO; -CARV12.548 PO; +CARV3.1246 PO; -CEPH-568 PO; -POTA20TA83 PO; -PRED10TA PO; -QUET50TA PO; -TOPI50TA PO
[2021-05-22 06:55] VITALS: BP_SYST 166
[2021-05-22] MEDS ORDERED: IBUPROFEN 600 MG TABLET PO ONE (08:15)
[2021-05-22 08:34] VITALS: BP_SYST 166
== END 2021-05-22 08:35 | disposition home or self-care (01) ==
LOC: SED 06:48
DX: S92.514A Nondisplaced fracture of proximal phalanx of right lesser toe(s), initial encounter for closed fracture (principal); Z88.2 Allergy status to sulfonamides; Z88.1 Allergy status to other antibiotic agents; Z79.899 Other long term (current) drug therapy; W23.0XXA Caught, crushed, jammed, or pinched between moving objects, initial encounter; Y93.89 Activity, other specified; Y92.89 Other specified places as the place of occurrence of the external cause; Y99.8 Other external cause status
CPT/HCPCS: 36415; 85379; 99283